=== PATIENT | female | born 1990 | race Caucasian/White ===

== ENCOUNTER 2023-01-10 08:03 | Outpatient (CLI) | payer MEDICAID ==
[2023-01-10 14:13] LABS: BASOPHILS # (AUTO) 0.1 10^3/uL (0.0-0.1); BASOPHILS % (AUTO) 0.7 %; EOSINOPHILS # (AUTO) 0.4 10^3/uL (0.0-0.7); EOSINOPHILS % (AUTO) 3.8 %; HCT - HEMATOCRIT 42.8 % (37.0-47.0); HGB - HEMOGLOBIN 14.2 g/dL (12.0-16.0); LYMPHOCYTES # (AUTO) 3.3 10^3/uL (1.5-3.5); LYMPHOCYTES % (AUTO) 35.6 %; MEAN CORPUSCULAR HEMOGLOBIN 30.3 pg (27.0-31.0); MEAN CORPUSCULAR HGB CONC 33.2 g/dL (32.0-36.0); MEAN CORPUSCULAR VOLUME 91.5 fL (81.0-99.0); MEAN PLATELET VOLUME 9.3 fL (7.9-10.8); MONOCYTES # (AUTO) 0.8 10^3/uL (0.0-1.0); MONOCYTES % (AUTO) 8.1 %; NEUTROPHILS # (AUTO) 4.8 10^3/uL (1.5-6.6); NEUTROPHILS % (AUTO) 51.4 %; PLT - PLATELET COUNT 419 10^3/uL (130-450); RED BLOOD COUNT 4.68 10^6/uL (4.20-5.40); RED CELL DISTRIBUTION WIDTH 12.6 % (12.0-15.0); WHITE BLOOD COUNT 9.4 x10^3/uL (4.8-10.8)
[2023-01-10 14:35] LABS: ALBUMIN 3.6 g/dL (3.2-5.5); ALKALINE PHOSPHATASE 57 IU/L (42-121); ALT ALANINE AMINOTRANSFERASE 19 IU/L (10-60); AST ASPARTATE AMINOTRANSFERASE 17 IU/L (10-42); BUN - BLOOD UREA NITROGEN 11 mg/dL (6-20); CALCIUM 8.8 mg/dL (8.5-10.3); CARBON DIOXIDE - CO2 25 mmol/L (21-32); CHLORIDE 107 mmol/L (101-111); CHOL/HDL RATIO 6.1 (<4.4); CHOLESTEROL 261 mg/dL; CREATININE 0.9 mg/dL (0.4-1.0); GFR - MDRD 72 (>89); GLUCOSE 99 mg/dL (70-100); HDL CHOLESTEROL 43 mg/dL; LDL CHOLESTEROL,CALCULATED 183 mg/dL; LDL/HDL RATIO 4.3 (<4.4); POTASSIUM 3.8 mmol/L (3.5-5.0); SODIUM 136 mmol/L (135-145); TOTAL PROTEIN 7.1 g/dL (6.7-8.2); TRIGLYCERIDES 173 mg/dL; VLDL CHOLESTEROL 35 mg/dL
[2023-01-10 14:49] LABS: THYROID STIMULATING HORMONE 1.03 uIU/mL (0.34-5.60)
== END 2023-01-10 08:04 | disposition home or self-care (01) ==
LOC: LAB.S 08:03
PROVIDERS: ATTEND Registered Nurse
DX: Z79.899 Other long term (current) drug therapy (principal); Z13.220 Encounter for screening for lipoid disorders; Z13.29 Encounter for screening for other suspected endocrine disorder
CPT/HCPCS: 36415; 80053; 80061; 83721; 84443; 85025

== ENCOUNTER 2023-01-30 14:12 | Outpatient (CLI) | payer MEDICAID ==
[2023-01-30 19:44] LABS: BASOPHILS # (AUTO) 0.1 10^3/uL (0.0-0.1); BASOPHILS % (AUTO) 0.8 %; EOSINOPHILS # (AUTO) 0.2 10^3/uL (0.0-0.7); EOSINOPHILS % (AUTO) 3.3 %; HCT - HEMATOCRIT 46.1 % (37.0-47.0); HGB - HEMOGLOBIN 15.3 g/dL (12.0-16.0); LYMPHOCYTES # (AUTO) 2.4 10^3/uL (1.5-3.5); LYMPHOCYTES % (AUTO) 32.1 %; MEAN CORPUSCULAR HEMOGLOBIN 30.3 pg (27.0-31.0); MEAN CORPUSCULAR HGB CONC 33.2 g/dL (32.0-36.0); MEAN CORPUSCULAR VOLUME 91.3 fL (81.0-99.0); MONOCYTES # (AUTO) 0.6 10^3/uL (0.0-1.0); MONOCYTES % (AUTO) 8.2 %; NEUTROPHILS % (AUTO) 54.9 %; PLT - PLATELET COUNT 445 10^3/uL (130-450); RED BLOOD COUNT 5.05 10^6/uL (4.20-5.40); RED CELL DISTRIBUTION WIDTH 12.6 % (12.0-15.0); WHITE BLOOD COUNT 7.3 x10^3/uL (4.8-10.8)
[2023-01-30 19:59] LABS: ALBUMIN 3.8 g/dL (3.2-5.5); BILIRUBIN,TOTAL 0.6 mg/dL (0.2-1.0); CALCIUM 8.9 mg/dL (8.5-10.3); CREATININE 0.9 mg/dL (0.4-1.0); TOTAL PROTEIN 7.6 g/dL (6.7-8.2)
[2023-01-30 20:12] LABS: T4 (THYROXINE) 8.73 ug/dL (6.09-12.23)
[2023-01-30 20:15] LABS: THYROID STIMULATING HORMONE 0.7 uIU/mL (0.34-5.60)
[2023-01-30 20:21] LABS: PROLACTIN 9.43 ng/mL
== END 2023-01-30 14:13 | disposition home or self-care (01) ==
LOC: LAB.S 14:12
PROVIDERS: ATTEND Physician Assistant Medical
DX: R42 Dizziness and giddiness (principal); R11.0 Nausea
CPT/HCPCS: 36415; 80053; 84146; 84436; 84443; 84480; 85025

== ENCOUNTER 2023-04-11 13:03 | Outpatient (CLI) | payer MEDICAID ==
--- NOTE | 2023-04-11 13:54 | Sleep Patient Instructions ---
Sleep Center Visit Summary - Patient Visit Information Reason for Visit: Initial consult for evaluation of sleep disordered breathing and other sleep issues. - Patient Instructions Instructions Attached: Sleep Study Home Monitor Additional Instructions: You will be completing a sleep study, either an in-lab polysomnography (PSG) or home sleep study (HST). You will follow-up in the sleep care office after the sleep study is completed to hear the results and talk about therapy, if needed. You will be called by our office staff to schedule this appointment, but you may contact us with any questions. - Clinic Information Contact: [facility] [address] [place] [address] [email or web address] T: [phone]
--- NOTE | 2023-04-11 13:58 | SLEEP CARE CONSULTATION ---
Information from patient questionnaire entered by Bree Cortes. I have reviewed and concur with the information entered by Bree Cortes. This document represents the service I personally performed and the decisions made by me, Irasema Farris ARNP. History of Present Illness Service Date and Time: 04/11/2023 1303 Reason for Visit: New patient Chief Complaint: reports: Snoring, Excessive daytime sleepiness, Observed pauses in breathing, Fatigue, Frequent awakenings at night Date of Onset: WHOLE LIFE MORE EXTREME IN THE PAST 10YRS Usual bedtime: 10PM Time it takes to fall asleep: A FEW HRS Snores at night: Yes Observed to quit breathing while asleep: Yes Sleeps alone due to snoring: No Number of times waking at night: 1-2 times a night, sometimes more Reasons for waking at night: reports: Choking (having bad acid reflux), Snoring, Gasping for air (noted by mother mostly), Other (NOISE, DREAMS AND NIGHTMARES) Toss, Turn, or Twitch while sleeping: Yes Recalls having dreams: Yes Usually gets out of bed at: 10-11AM 545AM WHEN WORKING Feels refreshed in the morning: No Morning headache: Yes (5 days a week; has neck issues/tension [place]) Sleepy or fatigued during the day: Yes Ever fallen asleep while driving: No Takes day naps: Yes (1-2 times a week for about 2-3 hours) Dreams during day naps: Yes Prior sleep studies: No Additional HPI information: I had the pleasure of seeing RAFAELA AZUL today regarding the possibility of her having a sleep disorder. Her current complaints are snoring, excessive daytime sleepiness, observed pauses in breathing, fatigue and frequent night awakenings. She states she was Lexapro and was having intense dreams with this medication. She is not longer on this medication but still has vivid dreams. She wakes up feeling tired and is tired "all the time". She is living with her mother who had told her that she snores loudly and is having times she stops breathing. She feels she can sleep anytime. 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 She is currently on medication for depression. She just changed to a new medication in last month and she is working with her provider to find better control with medications. - Parasomnia Symptoms Ever been unable to move upon waking from sleep: Yes (occasional; 1 every 2-3 months) Walks in sleep: No Talks in sleep: No Ever acted out dreams in sleep: No Ever felt weak in the knees when startled or emotional: No Bothered by creepy, crawly, restless sensations in legs: No Problems with memory or concentration: Yes (both, little bit of each; little bit foggy feeling) Subjective Initial [place] Sleepiness Scale score: 18 (04/11/23) Past Medical History Past Medical History: reports: Hypertension, Insulin resistance (PCOS), Anxiety, Asthma, Depression, Other (experiencing acid reflux) Social History The patient's occupation is a NOT EMPLOYED. Patient is Single and lives in [place]. Have you smoked in the past 12 months: No Years of smokin Quit date: 2007 Alcohol use: Yes Alcohol amount and frequency: 1-2 DRINKS A WEEK Caffeine use: Yes Caffeine amount and frequency: 1-2 A DAY Family History Family history of sleep disordered breathing: Yes Family Hx Sleep Apnea: Mother: Snoring, Sibling: Snoring Allergies and Home Medications Known drug allergies: Yes (VICODEN) Drug allergies reviewed: Yes Home medication list reviewed: Yes Allergy and home medication list: Medications: Aviane ( control) Buspirone Clonidine Sertraline Vitamins Review of Systems Weight loss over past 5 years: 30 lost but has then gained it back Cardiovascular: reports: high blood pressure Gastrointestinal: reports: heartburn, difficulty swallowing, nausea, diarrhea Neurological: reports: headaches. denies: head trauma Psychiatric: reports: anxiety, depression Ear/Nose/Throat: reports: dry mouth/throat, wisdom teeth removed, other (SORE THROAT). denies: tonsillectomy Endocrine: reports: sluggishness, too hot or cold, increased appetite Musculoskeletal: reports: neck pain, back pain Physical Exam Vital signs obtained and entered by: BREE Damico MA Blood Pressure: 122/74 (LEFT ARM) Cuff size: long Heart Rate: 78 O2 Saturation: 98 Height: 5 ft 5 in Weight: 225 lb 9.6 oz Body Mass Index: 37.5 BMI Classification: Obese Neck circumference: 14.75 Mouth and throat: narrow oropharynx Soft palate: long Hard palate: normal Uvula: normal Uvula visualization: 0% Mallampati Class IV Tongue: enlarged in size with teeth lopez on lateral edges Tonsils: 1+ Neck: normal w/o lymphadenopathy or thyromegaly Heart: regular rate and rhythm Lungs: clear bilaterally Impression and Plan 1. Suspected Obstructive Sleep Apnea-Hypopnea Syndrome, as suggested by a history of loud and irregular snoring, observed cessation of breath while asleep, gasping or choking in sleep, morning headache, frequent awakening during the night, unrefreshed sleep, cognitive impairment, and excessive daytime sleepiness. Narrow oropharynx and obesity are common predisposing factors for obstructive sleep apnea-hypopnea syndrome. I recommend proceeding to polysomnography to confirm the diagnosis and to assess severity. If the patient has significant sleep disordered breathing, a manual CPAP titration study will also be performed to find the optimal treatment pressure. I informed the patient of what the sleep studies involve and after some discussion, obtained agreement to proceed. The pathophysiology of obstructive sleep apnea-hypopnea syndrome was discussed with the patient and health risks of cardiovascular and cerebrovascular disease if not treated. Risks of drowsy driving discussed in detail and patient advised to avoid long distance driving and to green chain puller at the first sign of drowsiness. Patient agreed to plan. * Schedule polysomnography +- manual CPAP titration study and return in 1-2 weeks after the study to discuss result and initiate therapy. * Avoid long distance driving or driving when feeling sleepy. * Avoid alcohol, sedative and muscle relaxant around bedtime. * Attempt to lose weight. * Review instructions provided by trained office staff on how to prepare for the sleep study. * Return for follow-up after sleep study completed. Counseling Topics: Weight loss health impact Visit Type: In Office Time Spent with Patient (minutes): 30 Provider Statement: I spent 100% of the Face to Face Visit with the patient with greater than 50% spent counseling the patient and coordination of care.
[2023-04-11 14:18] VITALS: BP 122/74
== END 2023-04-11 13:04 | disposition home or self-care (01) ==
LOC: SC 13:03
PROVIDERS: ATTEND Nurse Practitioner Family
DX: G47.10 Hypersomnia, unspecified (principal); R53.83 Other fatigue; G47.8 Other sleep disorders; R51.9 Headache, unspecified; R06.83 Snoring; R06.81 Apnea, not elsewhere classified; I10 Essential (primary) hypertension; F32.A Depression, unspecified; E66.9 Obesity, unspecified; Z68.37 Body mass index [BMI] 37.0-37.9, adult; Z87.891 Personal history of nicotine dependence
CPT/HCPCS: 99203; 99212

== ENCOUNTER 2023-05-07 12:28 | Outpatient (CLI) | payer MEDICAID | END 2023-05-07 12:29 | disposition home or self-care (01) | LOC: SC 12:28 | PROVIDERS: ATTEND Nurse Practitioner Family | DX: G47.10 Hypersomnia, unspecified (principal); R09.02 Hypoxemia | CPT/HCPCS: 95806 ==

== ENCOUNTER 2023-06-11 13:29 | Outpatient (CLI) | payer MEDICAID ==
--- NOTE | 2023-06-11 13:58 | Sleep Patient Instructions ---
Sleep Center Visit Summary - Patient Visit Information Reason for Visit: Sleep Study Follow up - Patient Instructions Instructions Attached: Sleep Study, Sleep Clinic Visit Additional Instructions: You will be completing a sleep study, an in-lab polysomnography (PSG). You will follow-up in the sleep care office after the sleep study is completed to hear the results and talk about therapy, if needed. You will be called by our office staff to schedule this appointment, but you may contact us with any questions. - Clinic Information Contact: [facility] [address] [place] [address] [email or web address] T: [phone]
--- NOTE | 2023-06-11 14:04 | SLEEP CARE CONSULTATION ---
Information from patient questionnaire entered by Olya Cortes. I have reviewed and concur with the information entered by Olya Cortes. This document represents the service I personally performed and the decisions made by , Irasema Farris ARNP. History of Present Illness Service Date and Time: 06/11/2023 1329 Initial [place] Sleepiness Scale score: 18 (04/11/23) Current [place] Sleepiness Scale score: 13 (06/11/23) Additional HPI information: RAFAELA AZUL returns for follow up and results of the recently performed home sleep study. The patient was informed of the following findings: No significant sleep disordered breathing with an average AHI of 0.8 and rito oxygen saturation of 81%. I explained the pathophysiology behind obstructive sleep apnea. Patient does not have sleep apnea and was advised how weight gain could increase the risk of developing sleep apnea in the future. I strongly encouraged the patient to lose weight. Patient has moderate snoring. Snoring can be reduced by weight loss. Weight loss is best achieved with diet consult. Patient instructed to contact PCP for referral. Snoring can also be treated with an oral appliance from a dentist. Advised to check insurance coverage. In addition, an ENT evaluation can be do to see if other treatment is indicated. Patient counseled not drink alcohol less than 4 hours before bedtime as it can increase snoring and apnea. Patient was cautioned about risks of drowsy driving until sleepiness symptoms resolve. Patient denies drowsy driving. Sleep Study - Results Type of Sleep Study: Home sleep study (COMPLETED 05/07/23) Prior sleep studies: No Polysomnography/Home Sleep Study results: Physician Impression: The quality of the study is good. The length of the study is adequate (> 240 minutes). Please also see the tabulated and graphic data. 1. No significant sleep disordered breathing, with an AHI of 0.8/hr and rito SaO2 of 81%. During the study, the patient had 6 apneas (6 obstructive, 0 central, 0 mixed) and 3 hypopneas. The longest episode lasted 62.0 seconds. The patient slept adequately in supine position (supine AHI was 0.6 and non-supine, 0.84). 2. Hypoxemia (ICD-10 R09.02), minimal, with the lowest oxygen saturation of 81 % and 0.1 minutes with SaO2 under 90%. Baseline oxygen saturation was normal (Average oxygen saturation was 96%). Allergies and Home Medications Known drug allergies: Yes (as listed) Drug allergies reviewed: Yes Home medication list reviewed: Yes (Zoloft) Allergy and home medication list: Allergies acetaminophen [From Vicodin] Allergy (Verified 06/07/23 09:46) Nausea hydrocodone [From Vicodin] Allergy (Verified 06/07/23 09:46) Nausea Review of Systems Review of systems same as previous: Yes (no changes) Physical Exam Vital signs obtained and entered by: OLYA Damico MA Blood Pressure: 122/70 (LEFT ARM) Cuff size: regular Heart Rate: 50 O2 Saturation: 99 Height: 5 ft 5 in Weight: 220 lb 6.4 oz Body Mass Index: 36.6 BMI Classification: Obese Impression and Plan 1. Suspected Obstructive Sleep Apnea-Hypopnea Syndrome, as suggested by a history of loud and irregular snoring, observed cessation of breath while asleep, gasping or choking in sleep, morning headache, frequent awakening during the night, unrefreshed sleep, and excessive daytime sleepiness. Patient returns for sleep study followup with negative results but I think her symptoms most consistent with sleep apnea or other sleep disordered breathing and would recommend proceeding to an in-lab polysomnography to confirm the diagnosis and to assess severity. I obtained agreement to proceed. The pathophysiology of obstructive sleep apnea-hypopnea syndrome was discussed with the patient and health risks of cardiovascular and cerebrovascular disease if not treated. Risks of drowsy driving discussed in detail and patient advised to avoid long distance driving and to cost recovery technician at the first sign of drowsiness. Patient agreed to plan. 2. Obesity, unspecified. Currently patients BMI is 36.6. Obesity increases the risk of apnea, CPAP pressure requirements and overall health risks especially cardiovascular and diabetes. Thus patient is advised to lose weight. * Schedule polysomnography. * Avoid long distance driving or driving when feeling sleepy. * Avoid alcohol, sedative and muscle relaxant around bedtime. * Attempt to lose weight. * Review instructions provided by trained office staff on how to prepare for the sleep study. * Return for follow-up after sleep study completed. Counseling Topics: Weight loss health impact Visit Type: In Office Time Spent with Patient (minutes): 20 Provider Statement: I spent 100% of the Face to Face Visit with the patient with greater than 50% spent counseling the patient and coordination of care.
[2023-06-11 14:09] VITALS: BP 122/70; O2SAT 99
== END 2023-06-11 13:30 | disposition home or self-care (01) ==
LOC: SC 13:29
PROVIDERS: ATTEND Nurse Practitioner Family
DX: R09.02 Hypoxemia (principal)
CPT/HCPCS: 99212; 99213

== ENCOUNTER 2023-07-16 19:40 | Outpatient (CLI) | payer MEDICAID | END 2023-07-16 19:41 | disposition home or self-care (01) | LOC: SC 19:40 | PROVIDERS: ATTEND Nurse Practitioner Family | DX: G47.33 Obstructive sleep apnea (adult) (pediatric) (principal); F32.A Depression, unspecified; I10 Essential (primary) hypertension; E66.9 Obesity, unspecified; Z68.36 Body mass index [BMI] 36.0-36.9, adult | CPT/HCPCS: 95810 ==

== ENCOUNTER 2023-09-27 12:58 | Outpatient (CLI) | payer MEDICAID ==
--- NOTE | 2023-09-27 13:25 | Sleep Patient Instructions ---
Sleep Center Visit Summary - Patient Visit Information Reason for Visit: First Compliance followup - Patient Instructions Additional Instructions: You were here for follow up of CPAP therapy. You will be continued on CPAP therapy with pressure at 8-11 cmH2O. Please let us know if the pressure change is uncomfortable and we can make further adjustments of the pressure. You should follow up with sleep care in 1-2 months. You may contact us sooner for any questions or concerns. - Clinic Information Contact: [facility] [address] [place] [id number] [email or web address] T: [phone]
--- NOTE | 2023-09-27 13:31 | SLEEP CARE CONSULTATION ---
Information from patient questionnaire entered by Bree Cortes. I have reviewed and concur with the information entered by Bree Cortes. This document represents the service I personally performed and the decisions made by , Irasema Farris ARNP. History of Present Illness Service Date and Time: 09/27/2023 1258 Previous diagnosis: Mild, Obstructive Sleep Apnea-Hypopnea Syndrome AHI: 9.1 (07/2023) Reason for follow up: first compliance Equipment type: CPAP (RESMED 11; s/u 08/2023) Equipment obtained from: [employer] Mask style: Full face Mask brand: Resmed (AirTouch F20, medium cushion) Backup mask available: No (will keep old mask when replaced) Last cushion change: 1+ months Prior sleep studies: No Type of Sleep Study: Polysomnography (COMPLETED 05/07/23 COMPLETED 07/16/23) HPI additional information: RAFAELA AZUL was diagnosed to have mild, AHI 9.1, obstructive sleep apnea- hypopnea syndrome and returned today for CPAP therapy first compliance follow- up. Sleep Study - Results Type of Sleep Study: Polysomnography (COMPLETED 05/07/23 COMPLETED 07/16/23) Prior sleep studies: No CPAP Compliance Data - Data Reviewed with Patient Average duration of nightly device use: 9 HRS 32 MINS Compliance rate %: 100 (08/19/23-09/17/23; 30/30 days used) Current pressure setting (cmH2O): 4-15 (median 6.5, avg 9.1, max 10.9) Average residual AHI: 1.0 Central apnea: 0 Obstructive apnea: 0.7 Average large leak: 0.1 L/min Subjective Patient concerns: reports: air blowing in eyes, condensation in mask/hose (occasional), dry mouth, nose, throat (occasional). denies: aerophagia, mask discomfort, mask leak noise, nasal congestion, epistaxis Observed to snore while using device: No Current pressure setting perceived as: comfortable On therapy, patient: reports: sleeping better, awakening more refreshed, being more awake and alert during the day, more rested overall. denies: drowsiness while driving Initial [place] Sleepiness Scale score: 18 (04/11/23) Current [place] Sleepiness Scale score: 9 (09/27/23) Allergies and Home Medications Known drug allergies: Yes (as listed) Drug allergies reviewed: Yes Home medication list reviewed: Yes (no changes) Allergy and home medication list: Allergies acetaminophen [From Vicodin] Allergy (Verified 09/26/23 10:36) Nausea hydrocodone [From Vicodin] Allergy (Verified 09/26/23 10:36) Nausea Review of Systems Review of systems same as previous: Yes (NO CHANGE) Physical Exam Vital signs obtained and entered by: BREE Damico MA Blood Pressure: 132/83 (RIGHT ARM) Cuff size: regular Heart Rate: 53 O2 Saturation: 98 Height: 5 ft 5 in Weight: 225 lb 9.6 oz Body Mass Index: 37.5 BMI Classification: Obese Impression and Plan 1. Obstructive Sleep Apnea-Hypopnea Syndrome, mild, with good treatment compliance and good apnea control. On CPAP therapy, the patient has better sleep quality and is more rested overall. She has noticed more energy during the day and that she is sleeping better. She also notices improved mood overall. Patient has significant improvement of their sleep apnea and is satisfied with current CPAP therapy. She has had some occasional droplets of water on her face and dry mouth. She is a mouth breather and is probably oral venting. She also has some air leaking when the mask becomes dislodged from sleeping on her side. I advised her to monitor her humidity and heated hose to reduce oral dryness and she may also try a chinstrap to train herself to keep chin/mouth closed. I also advised her to try a CPAP pillow to help reduce mask dislodgment and air leaking into eye from mask moving. She voiced understanding. The patients pressure will be changed to autoCPAP 8-11 cmH20 to reflect pressure being used. Patient advised to contact me if pressure change is uncomfortable so that it can be adjusted. Goals for apnea control discussed. Patient's apnea severity and rationale for treatment to reduce apnea, improve sleep quality and reduce cardiovascular and cerebrovascular events was reviewed. I also reviewed the benefit of consistent device use of CPAP for hypertension, insulin resistance (PCOS), depression, anxiety and asthma. 2. Obesity, unspecified. Currently patients BMI is 37.5. Obesity increases the risk of apnea, CPAP pressure requirements and overall health risks especially cardiovascular and diabetes. Thus patient is advised to lose weight. * Change auto CPAP pressure to 8-11 cmH2O * Notify me if snoring with mask or feeling that the pressure is too much or too little * Attempt to lose weight * Call this office if any problems using CPAP * Return for follow up in 1-2 months, or sooner if concerns arise Counseling Topics: Spare mask, Weight loss health impact Follow up with Sleep Care in: 1-2 months Visit Type: In Office Time Spent with Patient (minutes): 23 Provider Statement: I spent 100% of the Face to Face Visit with the patient with greater than 50% spent counseling the patient and coordination of care.
[2023-09-27 13:40] VITALS: BP 132/83; O2SAT 98
== END 2023-09-27 12:59 | disposition home or self-care (01) ==
LOC: SC 12:58
PROVIDERS: ATTEND Nurse Practitioner Family
DX: G47.33 Obstructive sleep apnea (adult) (pediatric) (principal); E66.9 Obesity, unspecified; Z68.37 Body mass index [BMI] 37.0-37.9, adult
CPT/HCPCS: 99212; 99213

== ENCOUNTER 2023-11-19 14:04 | Outpatient (CLI) | payer MEDICAID ==
--- NOTE | 2023-11-19 13:17 | Sleep Patient Instructions ---
Sleep Center Visit Summary - Patient Visit Information Reason for Visit: 2-month follow-up with pressure change - Patient Instructions Additional Instructions: You were here for follow up of CPAP therapy. You will be continued on CPAP therapy with pressure at 7-10 cmH2O. You should follow up with sleep care in 3 months. You may contact us sooner for any questions or concerns. - Clinic Information Contact: [facility] [address] [place] [id number] [email or web address] T: [phone]
--- NOTE | 2023-11-19 13:21 | SLEEP CARE CONSULTATION ---
Information from patient questionnaire entered by Olya Cortes. I have reviewed and concur with the information entered by Olya Cortes. This document represents the service I personally performed and the decisions made by , Irasema Farris ARNP. History of Present Illness Service Date and Time: 11/19/2023 1300 Previous diagnosis: Mild, Obstructive Sleep Apnea-Hypopnea Syndrome AHI: 9.1 Reason for follow up: other (2 MONTH F/U) Equipment type: CPAP (RESMED Airsense 11, s/u 08/19/2024) Equipment obtained from: [employer] ([employer] supplies) Mask style: Full face Mask brand: Resmed (AirTouch F20) Backup mask available: No (will keep old mask when replaced) Last cushion change: 3 months Prior sleep studies: No Type of Sleep Study: Polysomnography (COMPLETED 05/07/23 COMPLETED 07/16/23) HPI additional information: RAFAELA AZUL was diagnosed to have mild, AHI 9.1, obstructive sleep apnea- hypopnea syndrome and returned today for CPAP therapy two month with pressure change follow-up. Sleep Study - Results Type of Sleep Study: Polysomnography (COMPLETED 05/07/23 COMPLETED 07/16/23) Prior sleep studies: No CPAP Compliance Data - Data Reviewed with Patient Average duration of nightly device use: 9 HRS 53 MINS Compliance rate %: 70 (09/15/23-11/13/23; 43/60 days used) Current pressure setting (cmH2O): 7-10 Average residual AHI: 0.8 Central apnea: 0 Obstructive apnea: 0.6 Hypopnea: 0.1 Average large leak: 0.1 L/min Subjective Missed days of use due to: reports: illness (multiple respiratory illnesses) Patient concerns: reports: mask discomfort, air blowing in eyes. denies: aerophagia, mask leak noise, condensation in mask/hose, nasal congestion, dry mouth, nose, throat, epistaxis Observed to snore while using device: No Current pressure setting perceived as: comfortable On therapy, patient: reports: sleeping better, awakening more refreshed, being more awake and alert during the day, more rested overall. denies: drowsiness while driving Initial [place] Sleepiness Scale score: 18 (04/11/23) Current [place] Sleepiness Scale score: 13 (02/13/24) Allergies and Home Medications Known drug allergies: Yes (as listed) Drug allergies reviewed: Yes Home medication list reviewed: Yes (no changes) Allergy and home medication list: Allergies acetaminophen [From Vicodin] Allergy (Verified 09/27/23 12:51) Nausea hydrocodone [From Vicodin] Allergy (Verified 09/27/23 12:51) Nausea Review of Systems Review of systems same as previous: Yes (no changes) Physical Exam Vital signs obtained and entered by: OLYA Damico MA Blood Pressure: 148/101 (LEFT ARM) Cuff size: regular Heart Rate: 65 O2 Saturation: 98 Height: 5 ft 5 in Weight: 223 lb Body Mass Index: 37.0 BMI Classification: Obese Impression and Plan 1. Obstructive Sleep Apnea-Hypopnea Syndrome, mild, with good treatment compliance and good apnea control. On CPAP therapy, the patient has better sleep quality and is more rested overall. Patient has significant improvement of their sleep apnea and is satisfied with current CPAP therapy. She has had some problems with respiratory illnesses limiting her ability to use the mask because of the constant coughing at night. She was able to use it last night with a full night and states she slept really well. She is still struggling a little bit with a fullface mask, some leaks into her eyes, but overall she has no complaints. She has a new cushion coming and then when she does come up with the 6-month reynaldo she may try a different style of the fullface mask. I will not make any changes today as far as her pressure or mask. Patient's apnea severity and rationale for treatment to reduce apnea, improve sleep quality and reduce cardiovascular and cerebrovascular events was reviewed. I also reviewed the benefit of consistent device use of CPAP for hypertension, insulin resistance (PCOS), depression and anxiety. 2. Obesity, unspecified. Currently patients BMI is 37. Obesity increases the risk of apnea, CPAP pressure requirements and overall health risks especially cardiovascular and diabetes. Thus patient is advised to lose weight. * Continue auto CPAP pressure at 7-10 cmH2O * Notify me if snoring with mask or feeling that the pressure is too much or too little * Attempt to lose weight * Call this office if any problems using CPAP * Return for follow up in 3 months, or sooner if concerns arise Counseling Topics: Spare mask, Weight loss health impact Follow up with Sleep Care in: 3 months Visit Type: In Office Time Spent with Patient (minutes): 20 Provider Statement: I spent 100% of the Face to Face Visit with the patient with greater than 50% spent counseling the patient and coordination of care.
[2023-11-19 13:23] VITALS: BP 148/101; O2SAT 98
== END 2023-11-19 14:05 | disposition home or self-care (01) ==
LOC: SC 14:04
PROVIDERS: ATTEND Nurse Practitioner Family
DX: G47.33 Obstructive sleep apnea (adult) (pediatric) (principal); E66.9 Obesity, unspecified; Z68.37 Body mass index [BMI] 37.0-37.9, adult
CPT/HCPCS: 99212; 99213

== ENCOUNTER 2024-02-12 15:39 | Outpatient (CLI) | payer MEDICAID ==
--- NOTE | 2024-02-12 09:22 | SLEEP CARE CONSULTATION ---
Information from patient questionnaire entered by Bree Cortes. I have reviewed and concur with the information entered by Bree Cortes. This document represents the service I personally performed and the decisions made by , Irasema Farris ARNP. History of Present Illness Service Date and Time: 02/12/2024 0900 Previous diagnosis: Mild, Obstructive Sleep Apnea-Hypopnea Syndrome AHI: 9.1 (05/07/23) Reason for follow up: three month (F/U) Equipment type: CPAP (RESMED Airsense 11, s/u 08/19/2024) Equipment obtained from: [employer] ([employer]) Mask style: Full face Mask brand: Resmed (AirFit F20) Backup mask available: Yes Last cushion change: 1 month+ Prior sleep studies: No Type of Sleep Study: Polysomnography (COMPLETED 05/07/23 COMPLETED 07/16/23) HPI additional information: RAFAELA AZUL was diagnosed to have mild, AHI 9.1, obstructive sleep apnea- hypopnea syndrome and returns via video appointment today for CPAP therapy three month follow-up. Sleep Study - Results Type of Sleep Study: Polysomnography (COMPLETED 05/07/23 COMPLETED 07/16/23) Prior sleep studies: No CPAP Compliance Data - Data Reviewed with Patient Average duration of nightly device use: 9 HRS 26 MINS Compliance rate %: 72 (11/11/23-; 66/90 days used) Current pressure setting (cmH2O): 7-10 Average residual AHI: 0.9 Central apnea: 0 Obstructive apnea: 0.6 Hypopnea: 0.1 Average large leak: 0 L/min Subjective Missed days of use due to: reports: illness (2 different sinus infections and a chest infection; stomach flu) Patient concerns: reports: air blowing in eyes (improved with new mask; needs adjustment and is fine), dry mouth, nose, throat (dry mouth, nose occasional). denies: aerophagia, mask discomfort, mask leak noise, condensation in mask/hose, nasal congestion, epistaxis Observed to snore while using device: No Current pressure setting perceived as: comfortable On therapy, patient: reports: sleeping better, awakening more refreshed, being more awake and alert during the day, more rested overall. denies: drowsiness while driving Initial Williams Sleepiness Scale score: 18 (04/11/23) Current Williams Sleepiness Scale score: 9 (02/12/24) Allergies and Home Medications Known drug allergies: Yes (as listed) Drug allergies reviewed: Yes Home medication list reviewed: Yes (no changes) Allergy and home medication list: Allergies acetaminophen [From Vicodin] Allergy (Verified 02/10/24 08:43) Nausea hydrocodone [From Vicodin] Allergy (Verified 02/10/24 08:43) Nausea Review of Systems Review of systems same as previous: Yes (NO CHANGE) Physical Exam Vital signs obtained and entered by: BREE Damico MA Height: 5 ft 4 in (PER PT) Weight: 223 lb (PER PT LAST OFFICE NOTE) Body Mass Index: 38.2 BMI Classification: Obese Impression and Plan 1. Obstructive Sleep Apnea-Hypopnea Syndrome, mild, with good treatment compliance and good apnea control. On CPAP therapy, the patient has better sleep quality and is more rested overall. She says she is liking the ResMed AirFit F20 and does not want to change the mask at this time. She feels she is doing well and getting comfortable with using her CPAP. Patient has significant i mprovement of their sleep apnea and is satisfied with current CPAP therapy. She still gets occasional dry mouth or nose or air leaking into her eyes that improve with mask adjustment, but these are not a major concern. Patient's apnea severity and rationale for treatment to reduce apnea, improve sleep quality and reduce cardiovascular and cerebrovascular events was reviewed. I also reviewed the benefit of consistent device use of CPAP for hypertension, depression/anxiety, insulin resistance (PCOS). 2. Obesity, unspecified. Currently patients BMI is 38.2. Obesity increases the risk of apnea, CPAP pressure requirements and overall health risks especially cardiovascular and diabetes. Thus patient is advised to lose weight. * Continue auto CPAP pressure at 7-10 cmH2O * Notify me if snoring with mask or feeling that the pressure is too much or too little * Attempt to lose weight * Call this office if any problems using CPAP * Return for follow up in 6 months, or sooner if concerns arise Counseling Topics: Weight loss health impact Visit Type: Telehealth Video Video Type: Doximity Patient Location: Home Location of Provider: Office Patient agrees and consents to this telehealth visit type: Yes Time Spent with Patient (minutes): 12 Provider Statement: I spent 100% of the Telehealth Video Call with the patient with greater than 50% spent counseling the patient and coordination of care.
== END 2024-02-12 15:40 | disposition home or self-care (01) ==
LOC: SC 15:39
PROVIDERS: ATTEND Nurse Practitioner Family
DX: G47.33 Obstructive sleep apnea (adult) (pediatric) (principal); E66.9 Obesity, unspecified; Z68.38 Body mass index [BMI] 38.0-38.9, adult